=== PATIENT | male | born 1965 | race Hispanic/Latino ===

== ENCOUNTER 2020-12-30 07:22 | Day surgery (SDC) | payer BC ==
[~2020-12-30] VITALS: Ht 172.7 cm; Wt 113.4 kg
[2020-12-30] MEDS ORDERED: 0.9%NACL 1000ML 1,000 ML IV ONE (08:12)
[2020-12-30 08:29] VITALS: BP 146/91
[2020-12-30] MEDS ORDERED: METO50TA18 PO (08:48)
[2020-12-30] MEDS ORDERED: [UNRECOGNIZED DRUG - CODE] PO (08:48)
[2020-12-30] MEDS ORDERED: TADA2.5T PO (08:48)
[2020-12-30] MEDS ORDERED: LOSA100T58 PO (08:48)
[2020-12-30] MEDS ORDERED: PROPOFOL 10 MG/ML 20ML VIAL IV ONE (09:38)
[2020-12-30] MEDS ORDERED: LIDOCAINE HCL 400MG/20ML VIAL ONE (09:38)
[2020-12-30] MEDS ORDERED: FENTANYL CITRATE PF 50 MCG/1 ML 2ML VIAL ONE (10:05)
[2020-12-30 10:20] VITALS: BP 143/67
[2020-12-30 10:25] VITALS: BP 124/75
[2020-12-30 10:30] VITALS: BP 134/85
[2020-12-30 10:40] VITALS: BP 140/80
== END 2020-12-30 10:40 | disposition home or self-care (01) ==
LOC: ENDO 07:22 → DAH 07:22 → ENDO 10:40
PROVIDERS: ATTEND Surgery
DX: K21.9 Gastro-esophageal reflux disease without esophagitis (principal); Z20.822 Contact with and (suspected) exposure to COVID-19; I10 Essential (primary) hypertension; E66.01 Morbid (severe) obesity due to excess calories; Z87.891 Personal history of nicotine dependence; Z68.39 Body mass index [BMI] 39.0-39.9, adult; Z82.0 Family history of epilepsy and other diseases of the nervous system; Z98.84 Bariatric surgery status
CPT/HCPCS: 43235; 71045; 87635; 93005; A4215 ×2; A4221; A4222; A4223; A4606; A4620; A4657; A4663; C9803; J2704; J3010; J3490; J7030